=== PATIENT | male | born 1980 | race African-American/Black ===

== ENCOUNTER 2017-05-31 00:22 | Emergency (ER) | payer MEDICARE | END 2017-05-31 01:45 | disposition home or self-care (01) | LOC: D.ER 00:22 | DX: J40 Bronchitis, not specified as acute or chronic (principal); J06.9 Acute upper respiratory infection, unspecified; Y04.8XXA Assault by other bodily force, initial encounter; Y93.89 Activity, other specified; Y92.89 Other specified places as the place of occurrence of the external cause; H91.3 Deaf nonspeaking, not elsewhere classified; J45.909 Unspecified asthma, uncomplicated ==